=== PATIENT | male | born 1940 | race Hispanic/Latino ===

== ENCOUNTER 2016-12-11 17:31 | Observation (INO) | payer MEDICARE, BC ==
[2016-12-11] MEDS ORDERED: Sodium Chloride 0.9% 1,000 ML IV STA (18:14)
[2016-12-11] MEDS ORDERED: Morphine 4 mg/ml ISec IVP STA (18:14)
--- NOTE | 2016-12-11 18:24 | ED PDOC ---
Arrival/HPI - General Chief Complaint: Abdominal Pain Time Seen by Provider: 12/11/16 18:04 Historian: Patient, Spouse - History of Present Illness Narrative History of Present Illness (Text): 12/11/16 18:05 Rojelio Canada is a 76 year old male, whose past medical history includes GERD , presents to the emergency department complaining of right side abdominal pain since this morning at around 07:30. Patient's reports that patient woke up with the pain, she then decided to give him breakfast but it continued to hurt. Patient notes being compliant with his medication, but today it gave him no relief and the pain is worse when lying down. Patient denies any chest pain, shortness of breath, dysuria, vomiting, fever, or other complaints. PMD: Dr. Veronica Kitchen Time/Duration: Other (early this morning at 07:30) Symptom Onset: Sudden Symptom Course: Unchanged Severity Level: Severe Activities at Onset: Light Modifying Factors (Text): pain is worse when lying down Context: Home Past Medical History - Provider Review Nursing Documentation Reviewed: Yes - Infectious Disease Hx of Infectious Diseases: None - Cardiac Hx Pacemaker: No - Neurological Hx Paralysis: No - Hematological/Oncological Hx Blood Transfusions: No Hx Blood Transfusion Reaction: No - Musculoskeletal/Rheumatological Hx Musculoskeletal Disorders: No - Psychiatric Hx Anxiety: Yes Hx Emotional Abuse: No Hx Physical Abuse: No Hx Substance Use: No - Anesthesia Hx Anesthesia Reactions: No Hx Malignant Hyperthermia: No - Suicidal Assessment Feels Threatened In Home Enviroment: No Family/Social History - Physician Review Nursing Documentation Reviewed: Yes Family/Social History: Unknown Family HX Smoking Status: Never Smoked Hx Alcohol Use: Yes (OCCASSIONAL) Frequency of alcohol use: Socially Hx Substance Use: No Allergies/Home Meds Allergies/Adverse Reactions: Allergies No Known Allergies Allergy (Verified 12/11/16 18:00) Home Medications: Home Meds Medication Instructions Recorded Confirmed Omeprazole 20 mg PO DAILY 09/16/13 12/11/16 Sertraline [Zoloft] 100 mg PO DAILY 09/16/13 12/11/16 Review of Systems - Review of Systems Constitutional: absent: Fevers Respiratory: absent: SOB Cardiovascular: absent: Chest Pain Gastrointestinal: Abdominal Pain (right upper quadrant). absent: Diarrhea, Vomiting Genitourinary Male: absent: Dysuria, Frequency Musculoskeletal: absent: Back Pain Neurological: absent: Headache Physical Exam Vital Signs Temp Pulse Resp BP Pulse Ox 12/11/16 21:08 68 20 136/72 95 12/11/16 17:56 98.9 F 64 20 159/77 H 97 Temperature: Afebrile Blood Pressure: Hypertensive Pulse: Regular Respiratory Rate: Normal Appearance: Positive for: Well-Appearing, Non-Toxic, Uncomfortable Pain Distress: Moderate Mental Status: Positive for: Alert and Oriented X 3 - Systems Exam Head: Present: Atraumatic, Normocephalic Pupils: Present: PERRL Extroacular Muscles: Present: EOMI Conjunctiva: Present: Normal Mouth: Present: Moist Mucous Membranes Neck: Present: Normal Range of Motion Respiratory/Chest: Present: Clear to Auscultation, Good Air Exchange. No: Respiratory Distress, Accessory Muscle Use Cardiovascular: Present: Regular Rate and Rhythm, Normal S1, S2. No: Murmurs Abdomen: Present: Tenderness (RUQ tenderness), Normal Bowel Sounds, Guarding, Other ((+) Lugo's sign). No: Distention, Peritoneal Signs Back: Present: Normal Inspection Upper Extremity: Present: Normal Inspection. No: Cyanosis, Edema Lower Extremity: Present: Normal Inspection. No: Edema Neurological: Present: GCS=15, CN II-XII Intact, Speech Normal Skin: Present: Warm, Dry, Normal Color. No: Rashes Psychiatric: Present: Alert, Oriented x 3, Normal Insight, Normal Concentration Medical Decision Making ED Course and Treatment: 12/11/16 18:05 Impression: 76 year old male with RUQ abdominal pain and tenderness, positive for Lugo's sign. Differential Diagnosis included but are not limited to: r/o cholecystitis vs gastritis vs pancreatitis Plan: -- EKG -- Ultrasound -- Labs -- Urinalysis -- Morphine, Pepcid, Zofran, and Sodium Chloride -- Reassess and disposition Progress Notes: EKG: Ordered, reviewed, and independently interpreted the EKG. Rate : 58 BPM Rhythm : sinus bradycardia Interpretation : 12/11/16 19:00 US Abdomen: Creator : BRAATA, SHANNON FINDINGS: Artifacts: The study is limited by artifact from bowel gas. Liver: The liver is increased in echogenicity, most commonly due to fatty infiltration, but other chronic liver diseases may have a similar appearance. The liver measures 13.4 x 10.9 cm. Gallbladder: No discrete gallstones are visualized. Mild iso-to hypoechoic sludge is visualized within the gallbladder. There is no significant gallbladder wall thickening or pericholecystic fluid. Common bile duct: The common bile duct measures 0.3 cm in diameter. No dilation. Pancreas: The pancreas is not visualized. Kidneys: The right kidney measures 9.9 x 5.4 x 5.6 cm. The left kidney measures 10.0 x 5.1 x 6.1 cm. No shadowing stones. No hydronephrosis. Spleen: The spleen measures 11.0 x 3.7 cm and is normal in echogenicity. Aorta: The aorta is not visualized. Inferior vena cava: The IVC is not visualized. IMPRESSION: 1. The liver is increased in echogenicity, most commonly due to fatty infiltration, but other chronic liver diseases may have a similar appearance. 2. No discrete gallstones are visualized. Mild iso-to hypoechoic sludge is visualized within the gallbladder. 3. Additional findings described above. This study is technically limited. 12/11/16 21:00 CT Abdomen and Pelvis With Intravenous Contrast: Creator : SHANNON REED FINDINGS: Lower thorax: Atelectatic changes and increased interstitial markings are identified at the bilateral lung bases. There is coronary artery calcification. ABDOMEN: Liver: No mass. Gallbladder and bile ducts: No calcified stones. No ductal dilation. Pancreas: Normal contour, without acute peripancreatic stranding. Spleen: No splenomegaly. Adrenals: No mass. Kidneys and ureters: Nonspecific perinephric stranding is seen bilaterally. There is no hydronephrosis bilaterally. Stomach and bowel: Colonic diverticula are identified, without acute inflammatory stranding of the adjacent mesentery. There is mild thickening of the descending and transverse colon, consistent with incomplete distention or mild colitis. There is mild distention of a small bowel loop within the left upper abdomen with air-fluid levels. Partial obstruction cannot be excluded. Appendix: There is mild gaseous distention of the appendix measuring 9 mm in diameter. There is no acute periappendiceal stranding. PELVIS: Bladder: A right inguinal hernia is identified containing a small portion of the bladder. Reproductive: The prostate is enlarged. ABDOMEN and PELVIS: Intraperitoneal space: No free air. Bones/joints: Hypertrophic degenerative changes are noted within the spine. There is mild convexity of the lumbar spine to the right. Soft tissues: Bilateral gynecomastia. Vasculature: There is atherosclerotic calcification of the abdominal aorta. No abdominal aortic aneurysm. Lymph nodes: No significant retroperitoneal or intrapelvic lymphadenopathy. IMPRESSION: 1. A right inguinal hernia is identified containing a small portion of the bladder. 2. The prostate is enlarged. 3. There is mild gaseous distention of the appendix measuring 9 mm in diameter. There is no acute periappendiceal stranding. Clinical correlation is recommended. 4. There is mild distention of a small bowel loop within the left upper abdomen with air-fluid levels. Partial obstruction cannot be excluded. 5. There is mild thickening of the descending and transverse colon, consistent with incomplete distention or mild colitis. 6. Diverticulosis. 7. Additional CT findings described above. 12/11/16 21:45 Patient's abdomen is soft and tender in RUQ and epigastric with mild guarding. No rebound. Abdominal exam with significant improvement from arrival. Patient feels much better. Discussed case with Exercise Physiologist Certified Ruy who will come and evaluate patient. 12/11/16 22:01 Dr. Redmond evaluated patient and agrees there is no acute abdomen at this time or need for emergent surgery. He will discuss case with Dr. Mackay. Dr. Mackay requested by patient's and patient. Case discussed with Dr. Puente who will place on his service. Consult was also placed with Dr. Winter who patient has seen many times for GI. - Lab Interpretations Lab Results: 12/11/16 18:35 12/11/16 18:35 Lab Results 12/11/16 20:33: Blood Type Confirm O POSITIVE 12/11/16 18:35: Blood Type O POSITIVE, Antibody Screen Negative, BBK History Checked No verified bt 12/11/16 18:35: Sodium 142, Potassium 4.6, Chloride 102, Carbon Dioxide 28, Anion Gap 17, BUN 17, Creatinine 1.0, Est GFR ( Amer) > 60, Est GFR (Non- Af Amer) > 60, Random Glucose 108, Calcium 9.5, Total Bilirubin 1.8 H, AST 27, ALT 51, Alkaline Phosphatase 78, Lactate Dehydrogenase 431, Total Creatine Kinase 167, Troponin I < 0.01, Total Protein 8.4 H, Albumin 4.7, Globulin 3.7, Albumin/Globulin Ratio 1.3, Lipase 44 12/11/16 18:35: Urine Color Yellow, Urine Appearance Clear, Urine pH 6.0, Ur Specific [place] 1.020, Urine Protein Negative, Urine Glucose (UA) Negative, Urine Ketones Negative, Urine Blood Negative, Urine Nitrate Negative, Urine Bilirubin Negative, Urine Urobilinogen 0.2, Ur Leukocyte Esterase Negative 12/11/16 18:35: PT 11.5, INR 1.06, APTT 28.7 12/11/16 18:35: WBC 7.4 D, RBC 4.60, Hgb 14.2, Hct 41.9 L, MCV 91.1, MCH 30.9, MCHC 33.9, RDW 13.8, Plt Count 140, MPV 11.6 H, Gran % 66.4, Lymph % (Auto) 24.9 , [place] % (Auto) 7.7 H, Eos % (Auto) 0.9 L, Baso % (Auto) 0.1, Gran # 4.93, Lymph # 1.9, [place] # 0.6, Eos # 0.1, Baso # 0.01 I have reviewed the lab results: Yes - RAD Interpretation Radiology Orders: 12/11/16 18:14 ABDOMEN COMPLETE [US] Stat 12/11/16 20:17 ABD & PELVIS IV CONTRAST ONLY [CT] Stat - EKG Interpretation Interpreted by ED Physician: Yes Type: 12 lead EKG - Medication Orders Current Medication Orders: Sodium Chloride (Sodium Chloride 0.9%) 1,000 mls @ 100 mls/hr IV .Q10H STA Stop: 12/12/16 04:13 Last Admin: 12/11/16 18:49 Dose: 100 mls/hr Discontinued Medications Famotidine (Pepcid) 20 mg IVP STAT STA Stop: 12/11/16 18:15 Last Admin: 12/11/16 18:49 Dose: 20 mg Iohexol (Omnipaque 350 100 Ml) Confirm Administered Dose 350 mg .ROUTE .STK-MED ONE Stop: 12/11/16 20:22 Morphine Sulfate (Morphine) 4 mg IVP STAT STA Stop: 12/11/16 18:15 Last Admin: 12/11/16 18:48 Dose: 4 mg Re-Assess: YOEL Pain Assessment Document 12/11/16 19:48 OCS (Rec: 12/11/16 20:55 OCS [facility] [id number] Pain Reassessment Is this a pain reassessment? Yes Sleep Is patient sleeping during reassessment? Yes Ondansetron HCl (Zofran Inj) 4 mg IVP STAT STA Stop: 12/11/16 18:15 Last Admin: 12/11/16 18:49 Dose: 4 mg - Scribe Statement The provider has reviewed the documentation as recorded by the Scribe 12/11/2016 Jocelyne Bunny Provider Scribe Attestation: All medical record entries made by the Scribe were at my direction and personally dictated by me. I have reviewed the chart and agree that the record accurately reflects my personal performance of the history, physical exam, medical decision making, and the department course for this patient. I have also personally directed, reviewed, and agree with the discharge instructions and disposition. Disposition/Present on Arrival - Present on Arrival Any Indicators Present on Arrival: No History of DVT/PE: No History of Uncontrolled Diabetes: No Urinary Catheter: No History of Decub. Ulcer: No History Surgical Site Infection Following: None - Disposition Have Diagnosis and Disposition been Completed?: Yes Diagnosis: Abdominal pain Disposition Time: 21:46 Patient Plan: Observation Patient Problems: Current Active Problems Problem Status Onset Abdominal pain Acute Condition: FAIR Referrals: Veronica Kitchen MD [Primary Care Provider] - Follow up with primary Forms: zoidu (Telugu)
[2016-12-11 18:54] LABS: BASO # 0.01 K/mm3 (0.0-2.0); BASO % 0.1 % (0.0-3.0); EOS # 0.1 (0.0-0.7); EOS % 0.9 % (1.5-5.0); GRAN # 4.93 (1.4-6.5); GRAN % 66.4 % (50.0-68.0); HEMATOCRIT 41.9 % (42.0-52.0); LYMPH # 1.9 (1.2-3.4); LYMPH % 24.9 % (22.0-35.0); MEAN CELL VOLUME 91.1 fl (80.0-105.0); MEAN CORPUSCULAR HEMOGLOBIN 30.9 pg (25.0-35.0); MEAN CORPUSCULAR HGB CONC 33.9 g/dl (31.0-37.0); MEAN PLATELET VOLUME 11.6 fl (7.0-11.0); MONO # 0.6 (0.1-0.6); MONO % 7.7 % (1.0-6.0); RED CELL DISTRIBUTION WIDTH 13.8 % (11.5-14.5); WHITE BLOOD COUNT 7.4 10^3/ul (4.5-11.0)
[2016-12-11 18:55] LABS: URINE BILIRUBIN NEGATIVE (NEGATIVE); URINE BLOOD NEGATIVE (NEGATIVE); URINE GLUCOSE (UA) NEGATIVE (NEGATIVE); URINE KETONE NEGATIVE (NEGATIVE); URINE LEUKOCYTE ESTERASE NEGATIVE Leu/uL (NEGATIVE); URINE PROTEIN NEGATIVE mg/dL (<30 mg/dL); URINE UROBILINOGEN 0.2 E.U./dL (<1 E.U./dL)
[2016-12-11 18:56] LABS: URINE APPEARANCE CLEAR (CLEAR); URINE COLOR YELLOW (YELLOW)
[2016-12-11 18:58] LABS: ALB/GLOB RATIO 1.3 (1.1-1.8); ALKALINE PHOSPHATASE 78 U/L (38-126); ALT/SGPT 51 U/L (7-56); AST/SGOT 27 U/L (17-59); BILIRUBIN,TOTAL 1.8 mg/dL (0.2-1.3); BLOOD UREA NITROGEN 17 mg/dL (7-21); CALCIUM 9.5 mg/dL (8.4-10.5); CARBON DIOXIDE 28 mmol/L (21-33); CHLORIDE 102 mmol/L (98-107); GFR AFRICAN-AMERICAN > 60; GLUCOSE,RANDOM 108 mg/dL (70-110); LIPASE 44 U/L (23-300); POTASSIUM 4.6 mmol/L (3.6-5.0); SODIUM 142 mmol/L (132-148); TOTAL PROTEIN 8.4 g/dL (5.8-8.3)
[2016-12-11 19:00] LABS: INR 1.06 (0.93-1.08); PARTIAL THROMBOPLASTIN TIME 28.7 Seconds (23.7-30.8)
[2016-12-11 19:12] LABS: TROPONIN I < 0.01 ng/mL
[2016-12-11] MEDS ORDERED: Iohexol 350 MG/100 ML VIAL ONE (20:21)
--- NOTE | 2016-12-11 20:35 | US ---
EXAM: US Abdomen Complete EXAM DATE/TIME: 12/11/2016 6:14 PM CLINICAL HISTORY: The patient age is 76 years old and is male; Pain; Abdominal pain; Additional info: Ruq pain R/O cholecystitis vs biliary colic Facility exam id and description: Us abd abdomen complete TECHNIQUE: Real-time ultrasound of the abdomen (complete) with image documentation. COMPARISON: No relevant prior studies available. FINDINGS: Artifacts: The study is limited by artifact from bowel gas. Liver: The liver is increased in echogenicity, most commonly due to fatty infiltration, but other chronic liver diseases may have a similar appearance. The liver measures 13.4 x 10.9 cm. Gallbladder: No discrete gallstones are visualized. Mild iso-to hypoechoic sludge is visualized within the gallbladder. There is no significant gallbladder wall thickening or pericholecystic fluid. Common bile duct: The common bile duct measures 0.3 cm in diameter. No dilation. Pancreas: The pancreas is not visualized. Kidneys: The right kidney measures 9.9 x 5.4 x 5.6 cm. The left kidney measures 10.0 x 5.1 x 6.1 cm. No shadowing stones. No hydronephrosis. Spleen: The spleen measures 11.0 x 3.7 cm and is normal in echogenicity. Aorta: The aorta is not visualized. Inferior vena cava: The IVC is not visualized. IMPRESSION: 1. The liver is increased in echogenicity, most commonly due to fatty infiltration, but other chronic liver diseases may have a similar appearance. 2. No discrete gallstones are visualized. Mild iso-to hypoechoic sludge is visualized within the gallbladder. 3. Additional findings described above. This study is technically limited.
--- NOTE | 2016-12-11 21:10 | CT ---
EXAM: CT Abdomen and Pelvis With Intravenous Contrast EXAM DATE/TIME: 12/11/2016 8:17 PM CLINICAL HISTORY: The patient age is 76 years old and is male; Pain; Abdominal pain; Localized; Right upper quadrant (ruq); Additional info: Ruq abd pain Facility exam id and description: Ct abdpelciv abd pelvis iv contrast only TECHNIQUE: Axial computed tomography images of the abdomen and pelvis with intravenous contrast. All CT scans at this facility use one or more dose reduction techniques, viz.: automated exposure control; ma/kV adjustment per patient size (including targeted exams where dose is matched to indication; i.e. head); or iterative reconstruction technique. Coronal and sagittal reformatted images were created and reviewed. CONTRAST: 97 mL of OMNI 350 administered intravenously. COMPARISON: US - ABDOMEN COMPLETE 12/11/2016 7:29:25 PM FINDINGS: Lower thorax: Atelectatic changes and increased interstitial markings are identified at the bilateral lung bases. There is coronary artery calcification. ABDOMEN: Liver: No mass. Gallbladder and bile ducts: No calcified stones. No ductal dilation. Pancreas: Normal contour, without acute peripancreatic stranding. Spleen: No splenomegaly. Adrenals: No mass. Kidneys and ureters: Nonspecific perinephric stranding is seen bilaterally. There is no hydronephrosis bilaterally. Stomach and bowel: Colonic diverticula are identified, without acute inflammatory stranding of the adjacent mesentery. There is mild thickening of the descending and transverse colon, consistent with incomplete distention or mild colitis. There is mild distention of a small bowel loop within the left upper abdomen with air-fluid levels. Partial obstruction cannot be excluded. Appendix: There is mild gaseous distention of the appendix measuring 9 mm in diameter. There is no acute periappendiceal stranding. PELVIS: Bladder: A right inguinal hernia is identified containing a small portion of the bladder. Reproductive: The prostate is enlarged. ABDOMEN and PELVIS: Intraperitoneal space: No free air. Bones/joints: Hypertrophic degenerative changes are noted within the spine. There is mild convexity of the lumbar spine to the right. Soft tissues: Bilateral gynecomastia. Vasculature: There is atherosclerotic calcification of the abdominal aorta. No abdominal aortic aneurysm. Lymph nodes: No significant retroperitoneal or intrapelvic lymphadenopathy. IMPRESSION: 1. A right inguinal hernia is identified containing a small portion of the bladder. 2. The prostate is enlarged. 3. There is mild gaseous distention of the appendix measuring 9 mm in diameter. There is no acute periappendiceal stranding. Clinical correlation is recommended. 4. There is mild distention of a small bowel loop within the left upper abdomen with air-fluid levels. Partial obstruction cannot be excluded. 5. There is mild thickening of the descending and transverse colon, consistent with incomplete distention or mild colitis. 6. Diverticulosis. 7. Additional CT findings described above.
--- NOTE | 2016-12-11 22:31 | CP.PCM.CON ---
History of Present Illness - History of Present Illness History of Present Illness: Gen Sx: Dr Mackay Pt is a 76M, otherwise healthy, with a PMH for only gastritis (GI = Dr Winter) . Pt reports he had RUQ pain which developed early this morning shortly after breakfast. Pt took his daily omeprazole but this did not alleviate the pain. Throughout the day the pain would come and go but each occurrence increased in severity, prompting his visit to the ED. At the time of ED presentation pt pain was 10/10 but it has since resolved. He denies any radiation to the back, chest, or throughout the rest of the abdomen. He denies any N/V, F/C, SOB or chest pain. He has had episodes like this in the past but never this intense. CT performed in ED: V-rad read as distal colitis, however there is definitely a significant degree of gastric wall thickening consistent with his presentation and medical history. Last EGD was 4 years ago. PMH: as above PSH: none NKDA Review of Systems - Review of Systems All systems: reviewed and no additional remarkable complaints except (as per hpi ) Past Patient History - Infectious Disease Hx of Infectious Diseases: None - Past Social History Smoking Status: Never Smoked - CARDIAC Hx Pacemaker: No - NEUROLOGICAL Hx Paralysis: No - HEMATOLOGICAL/ONCOLOGICAL Hx Blood Transfusions: No Hx Blood Transfusion Reaction: No - MUSCULOSKELETAL/RHEUMATOLOGICAL Hx Musculoskeletal Disorders: No - PSYCHIATRIC Hx Anxiety: Yes Hx Emotional Abuse: No Hx Physical Abuse: No Hx Substance Use: No - SURGICAL HISTORY Hx Surgeries: Yes - ANESTHESIA Hx Anesthesia Reactions: No Hx Malignant Hyperthermia: No Meds Allergies/Adverse Reactions: Allergies Allergy/AdvReac Type Severity Reaction Status Date / Time No Known Allergies Allergy Verified 12/11/16 18:00 - Medications Medications: Current Medications Sodium Chloride (Sodium Chloride 0.9%) 1,000 mls @ 100 mls/hr IV .Q10H STA Stop: 12/12/16 04:13 Last Admin: 12/11/16 18:49 Dose: 100 mls/hr Physical Exam - Constitutional Appears: Non-toxic, No Acute Distress - Head Exam Head Exam: NORMAL INSPECTION - Eye Exam Eye Exam: Normal appearance - ENT Exam ENT Exam: Mucous Membranes Moist - Respiratory Exam Respiratory Exam: absent: Accessory Muscle Use, Respiratory Distress - Cardiovascular Exam Cardiovascular Exam: REGULAR RHYTHM. absent: Tachycardia - GI/Abdominal Exam GI & Abdominal Exam: Normal Bowel Sounds, Soft. absent: Distended, Firm, Guarding, Hernia, Mass, Rebound, Rigid, Tenderness - Extremities Exam Extremities exam: Negative for: calf tenderness, pedal edema - Back Exam Back exam: FULL ROM. absent: CVA tenderness (L), CVA tenderness (R), muscle spasm, tenderness - Neurological Exam Neurological exam: Alert, Oriented x3 - Psychiatric Exam Psychiatric exam: Normal Affect, Normal Mood - Skin Skin Exam: Normal Color, Warm Results - Vital Signs Recent Vital Signs: Last Vital Signs Temp 98.9 F 12/11/16 17:56 Pulse 68 12/11/16 21:08 Resp 20 12/11/16 21:08 BP 136/72 12/11/16 21:08 Pulse Ox 95 12/11/16 21:08 - Labs Result Diagrams: 12/11/16 18:35 12/11/16 18:35 Assessment & Plan - Assessment and Plan (Free Text) Assessment: 76M presents with acute abdominal pain: ddx gastritis vs gastric ulcer vs ACS Plan: acute coronary syndrome ruled out in ED recommend admission for further evaluation NPO, IV Fluids, pain control PRN, PPI Will place GI consult with Dr Winter, pt may require repeat endoscopy to evaluate for disease progression or ulcers will d/w Dr Thompson Redmond, PGY3
[2016-12-11] MEDS ORDERED: Morphine 4 mg/ml ISec IVP PRN (22:35)
[2016-12-11 23:16] VITALS: RESP 18
[2016-12-11 23:47] VITALS: BMI 29.7
[2016-12-12 06:47] LABS: BASO # 0.01 K/mm3 (0.0-2.0); BASO % 0.2 % (0.0-3.0); EOS # 0.1 (0.0-0.7); EOS % 1.5 % (1.5-5.0); GRAN # 3.3 (1.4-6.5); GRAN % 61.3 % (50.0-68.0); HEMATOCRIT 37.7 % (42.0-52.0); LYMPH # 1.5 (1.2-3.4); MEAN CELL VOLUME 91.1 fl (80.0-105.0); MEAN CORPUSCULAR HEMOGLOBIN 30.4 pg (25.0-35.0); MEAN CORPUSCULAR HGB CONC 33.4 g/dl (31.0-37.0); MONO # 0.5 (0.1-0.6); WHITE BLOOD COUNT 5.4 10^3/ul (4.5-11.0)
[2016-12-12 07:03] LABS: ALB/GLOB RATIO 1.2 (1.1-1.8); ALKALINE PHOSPHATASE 61 U/L (38-126); ALT/SGPT 38 U/L (7-56); AST/SGOT 20 U/L (17-59); BILIRUBIN,TOTAL 2.1 mg/dL (0.2-1.3); BLOOD UREA NITROGEN 15 mg/dL (7-21); CALCIUM 8.5 mg/dL (8.4-10.5); CARBON DIOXIDE 26 mmol/L (21-33); CHLORIDE 107 mmol/L (98-107); GFR AFRICAN-AMERICAN > 60; GLUCOSE,RANDOM 103 mg/dL (70-110); POTASSIUM 4.3 mmol/L (3.6-5.0); SODIUM 142 mmol/L (132-148); TOTAL PROTEIN 6.7 g/dL (5.8-8.3)
--- NOTE | 2016-12-12 07:56 | CP.PCM.PN ---
Subjective - Date & Time of Evaluation Date of Evaluation: 12/12/16 Time of Evaluation: 07:48 - Subjective Subjective: General Surgery: Dr. Mackay 76 yo M PMH of gastritis evaluated for gastritis vs. possible SBO. Pt is followed by GI (Dr. Winter) as an outpatient. Pt reports improvement in RUQ abdominal pain this morning since the start of IV omeprazole yesterday evening. Denies f/c n/v, SOB, chest pain. Objective - Vital Signs/Intake and Output Vital Signs (last 24 hours): Temp Pulse Resp BP Pulse Ox 97.8 F 55 L 18 135/71 97 12/11/16 23:19 12/11/16 23:19 12/11/16 23:19 12/11/16 23:19 12/11/16 23:15 Intake and Output: 12/12/16 12/12/16 06:59 18:59 Intake Total 0 Balance 0 - Medications Medications: Current Medications Sodium Chloride (Sodium Chloride 0.9%) 1,000 mls @ 100 mls/hr IV .Q10H [facility] Last Admin: 12/12/16 00:00 Dose: Not Given Morphine Sulfate (Morphine) 4 mg IVP Q4H PRN PRN Reason: Pain, moderate (4-7) Ondansetron HCl (Zofran Inj) 4 mg IVP Q6 PRN PRN Reason: Nausea/Vomiting Pantoprazole Sodium (Protonix Inj) 40 mg IVP Q12 LEX - Labs Labs: 12/12/16 06:00 12/12/16 06:00 PT 11.5 Seconds (9.9-11.8) 12/11/16 18:35 INR 1.06 (0.93-1.08) 12/11/16 18:35 APTT 28.7 Seconds (23.7-30.8) 12/11/16 18:35 - Constitutional Appears: Non-toxic, No Acute Distress - Head Exam Head Exam: ATRAUMATIC, NORMOCEPHALIC - Eye Exam Eye Exam: EOMI. absent: Conjunctival injection - ENT Exam ENT Exam: Mucous Membranes Moist - Neck Exam Neck Exam: Full ROM - Respiratory Exam Respiratory Exam: NORMAL BREATHING PATTERN. absent: Accessory Muscle Use - Cardiovascular Exam Cardiovascular Exam: absent: Bradycardia, Tachycardia - GI/Abdominal Exam GI & Abdominal Exam: Soft. absent: Guarding, Rigid, Tenderness, Rebound - Extremities Exam Extremities Exam: Full ROM, Normal Inspection - Psychiatric Exam Psychiatric exam: Normal Affect, Normal Mood - Skin Skin Exam: Dry, Intact, Normal Color, Warm Assessment and Plan - Assessment and Plan (Free Text) Assessment: 76 yo M PMH gastritis evaluated for gastritis vs. possible SBO. Plan: c/w current medical management no surgical intervention at this time c/w IV omeprazole c/w current pain management f/u with GI for diet and recommendations Sofia Dash DO PGY1
[2016-12-12 08:00] VITALS: BP 126/71; PULSE 57; TEMP 98.5; O2SAT 96
[2016-12-12] MEDS: Sodium Chloride 0.9% 1,000 ML IV SCH ×2 (08:45)
--- NOTE | 2016-12-12 10:18 | CP.PCM.CON ---
History of Present Illness - History of Present Illness History of Present Illness: Seen and examined at the bedside this morning, chart was reviewed. Request for consultation is for abdominal pain,? Gastritis versus partials SBO. HPI: This is a 76-year-old male with a past medical history of gastritis, the patient denies any other pertinent history came to the emergency room yesterday with increasing complaints of right upper quadrant pain. Patient states that in the past he does get intermittent right upper quadrant pain, but yesterday morning after breakfast he experienced right upper quadrant pain that was increasing in intensity. He recalls having pancakes and seen for breakfast. Denies shortness of breath, chest pains, nausea, or vomiting. No complaints of any fever or chills. On admission he had a CT scan of abdomen and pelvis with only IV contrast and showed colonic diverticula with some thickening in the descending colon question of mild colitis or some 12? Partial SBO. The patient states that his last endoscopy was about 4 years ago no ulcers, he was given omeprazole to take, he does report that he does not take this medication daily and denies symptoms of acid reflux. No complaints of weight loss or loss of appetite. No reports of melena or bright red blood, his last bowel movement was yesterday, denies diarrhea or constipation. The patient's last colonoscopy was in 2013, he has history of colon polyp,on this last one, He was only found to have hemorrhoids and diverticulosis. Patient also had abdominal ultrasound, found to have fatty liver, no gallstones but sluggish, the CBD measured 0.3 cm Past medical history: As stated above gastritis, history of colon polyps, diveticulosis, gastric polyp,denies cardiac, pulmonary history Surgical history: Patient denies any abdominal or cardiac procedures/surgery Allergies: no known drug allergies Social history: Denies smoking, EtOH or substance abuse. Family history: Noncontributory Medications: Reviewed as per MAR ROS: Systems review with positive findings GI. Past Patient History - Infectious Disease Hx of Infectious Diseases: None - Past Social History Smoking Status: Never Smoked - CARDIAC Hx Pacemaker: No - NEUROLOGICAL Hx Paralysis: No - HEENT Hx Cataracts: Yes - HEMATOLOGICAL/ONCOLOGICAL Hx Blood Transfusions: No Hx Blood Transfusion Reaction: No - MUSCULOSKELETAL/RHEUMATOLOGICAL Hx Falls: No - GASTROINTESTINAL Hx Gastroesophageal Reflux: Yes - PSYCHIATRIC Hx Depression: Yes - SURGICAL HISTORY Hx Surgeries: Yes - ANESTHESIA Hx Anesthesia Reactions: No Hx Malignant Hyperthermia: No Meds Allergies/Adverse Reactions: Allergies Allergy/AdvReac Type Severity Reaction Status Date / Time No Known Allergies Allergy Verified 12/11/16 18:00 - Medications Medications: Current Medications Sodium Chloride (Sodium Chloride 0.9%) 1,000 mls @ 100 mls/hr IV .Q10H [facility] Last Admin: 12/12/16 08:45 Dose: 100 mls/hr Morphine Sulfate (Morphine) 4 mg IVP Q4H PRN PRN Reason: Pain, moderate (4-7) Ondansetron HCl (Zofran Inj) 4 mg IVP Q6 PRN PRN Reason: Nausea/Vomiting Pantoprazole Sodium (Protonix Inj) 40 mg IVP Q12 [facility] Last Admin: 12/12/16 09:16 Dose: 40 mg Physical Exam - Constitutional Appears: No Acute Distress - Head Exam Head Exam: NORMOCEPHALIC - Eye Exam Eye Exam: Normal appearance, PERRL. absent: Scleral icterus - ENT Exam ENT Exam: Mucous Membranes Moist - Neck Exam Neck exam: Positive for: Normal Inspection - Respiratory Exam Respiratory Exam: Clear to Auscultation Bilateral, NORMAL BREATHING PATTERN. absent: Respiratory Distress - Cardiovascular Exam Cardiovascular Exam: REGULAR RHYTHM, +S1, +S2 - GI/Abdominal Exam GI & Abdominal Exam: Normal Bowel Sounds, Soft, Tenderness (mild RUQ). absent: Distended, Guarding, Rebound - Extremities Exam Extremities exam: Positive for: pedal pulses present. Negative for: calf tenderness, pedal edema - Neurological Exam Neurological exam: Alert, CN II-XII Intact, Oriented x3 - Skin Skin Exam: Dry, Warm Results - Vital Signs Recent Vital Signs: Last Vital Signs Temp 98.5 F 12/12/16 07:59 Pulse 57 L 12/12/16 07:59 Resp 18 12/12/16 07:59 BP 126/71 12/12/16 07:59 Pulse Ox 96 12/12/16 07:59 - Labs Result Diagrams: 12/12/16 06:00 12/12/16 06:00 Labs: Laboratory Results - last 24 hr 12/12/16 12/12/16 06:00 06:00 WBC 5.4 D RBC 4.14 Hgb 12.6 L Hct 37.7 L MCV 91.1 MCH 30.4 MCHC 33.4 RDW 14.0 Plt Count 112 L MPV 11.0 Gran % 61.3 Lymph % (Auto) 27.0 [place] % (Auto) 10.0 H Eos % (Auto) 1.5 Baso % (Auto) 0.2 Gran # 3.30 Lymph # 1.5 Bowie # 0.5 Eos # 0.1 Baso # 0.01 Sodium 142 Potassium 4.3 Chloride 107 Carbon Dioxide 26 Anion Gap 13 BUN 15 Creatinine 0.9 Est GFR ( Amer) > 60 Est GFR (Non-Af Amer) > 60 Random Glucose 103 Calcium 8.5 Total Bilirubin 2.1 H AST 20 ALT 38 Alkaline Phosphatase 61 Total Protein 6.7 Albumin 3.6 Globulin 3.1 Albumin/Globulin Ratio 1.2 Assessment & Plan - Assessment and Plan (Free Text) Assessment: Assessment: 76-year-old male with past medical history of gastritis, colon polyps, diveticulosis came to the emergency room with complaints of right upper quadrant pain Gastritis versus partial small bowel obstruction, Status post abdominal ultrasound, no gallstones, looks like may have sludge, no CBD dilatation Hyperbilirubinemia Plan: Start patient on clear liquid diet and advance as tolerated Continue Protonix BID check reticulocyte count and direct bilirubin On IVF for hydration, consider DC if tolerate increased diet Being followed by surgery Patient's right upper quadrant abdominal pain has improved, patient is not regularly taking his omeprazole, he may benefit from an elective outpatient endoscopy, he can follow up in our outpatient office upon discharge. We will continue to follow closely. Thank you for this consult and for last participating in your patient's care, we 'll make further recommendations based upon patient's clinical course. Seen and discussed with Dr. Kc, who is covering Dr. Winter.
[2016-12-12 10:45] LABS: RETIC% 1.02 % (0.5-1.5)
--- NOTE | 2016-12-12 11:31 | CARD ---
APPROVED REPORT EKG Measurement Heart [id number] <Conclusion> Sinus bradycardia Inferior infarct, age undetermined Abnormal ECG
--- NOTE | 2016-12-12 11:39 | HP ---
HISTORY OF PRESENT ILLNESS: The patient is a 76-year-old male presented to the ED with abdominal pain right-sided for one day. No nausea. No vomiting. No fever. No cough with expectoration. CAT scan of the abdomen showed partial small bowel obstruction and thickening of colon consistent with colitis. He had EGD few years ago, which showed gastritis. He has a history of anxiety, no issues recently. PAST MEDICAL HISTORY: Anxiety, depression. PAST SURGICAL HISTORY: Unknown. PERSONAL HISTORY: Occasional alcohol used, never smoked. FAMILY HISTORY: Noncontributory. No positive history in mother and father. SOCIAL HISTORY: Lives at home. ALLERGIES: NO KNOWN DRUG ALLERGIES. HOME MEDICATIONS: Omeprazole 20 mg daily; Zoloft 100 mg daily. REVIEW OF SYSTEMS: As per HPI. Rest of the 12-point review of systems reviewed and negative. PHYSICAL EXAMINATION: GENERAL: Comfortable in bed, in no acute distress. VITAL SIGNS: Temperature 98.9, heart rate 64 per minute, respiratory rate 20 per minute, blood pressure 159/70, pulse ox is 97% on room air. HEENT: Head atraumatic, normocephalic. Oral mucosa moist. NECK: Supple. CHEST: Air entry present and equal bilaterally. No added sounds. CARDIOVASCULAR: S1 and S2 normal. No murmur. No gallop. ABDOMEN: Tenderness, right upper quadrant present; bowel sounds in decrease. No rigidity. No guarding. No distention. EXTREMITIES: No edema. DAY GUARD: Alert and oriented x3. Cranial nerves intact. SKIN: Warm and dry. No . No rash. No petechiae. SPINE: Nontender. DIAGNOSTIC IMAGING: CAT scan of the abdomen as per HPI. LABORATORY DATA: White count 7.4, hemoglobin 12.6, hematocrit 37.7, platelet count 112, potassium 4.3, bilirubin 2.1, AST 20, ALT 38, alkaline phosphatase 61. UA negative. ASSESSMENT AND PLAN: 1. Partial small bowel obstruction. 2. Colitis. 3. Mild anemia. 4. History of gastritis. 5. Anxiety and depression. PLAN: We will keep n.p.o., IV fluids normal saline 100 mL an hour; Protonix 40 mg IV q. 12; Zofran 4 mg IV q. 6 hours p.r.n., morphine sulfate 4 mg IV q. 4 hours p.r.n. for pain. Surgery consultation with Dr. Mackay requested. GI consultation with Dr. Winter requested. We will continue to monitor blood count. He has mild anemia. Thrombocytopenia, platelet count declined to 112, on admission it was 140. DVT prophylaxis with heparin subQ q. 12 hours, 5000. Mary Best MD [facility]EN
--- NOTE | 2016-12-12 21:24 | CON ---
DATE: 12/12/[address] Kc dictating an addendum to consultation performed by PEDRITO Davidson. I have personally seen and examined this patient. This is a 76-year-old male who comes to the hospital with increasing right upper quadrant abdominal pain with some nonspecific mural thickening of descending colon and minimal small-bowel dilatation on CAT scan. The patient denies any diarrhea, nausea, vomiting. There is some sludge in the gallbladder with no obvious stones or biliary dilatation. His liver enzymes are normal. The patient's abdominal pain had resolved this morning at the time of my visit and examination. Etiology of the abdominal pain is unclear. Recommendations are to advance the patient's diet as tolerated, and since his abdominal pain has resolved, he can be discharged to home with outpatient followup. Darrick Kc MD
--- NOTE | 2016-12-15 16:09 | CP.PCM.DIS ---
Provider - Provider Date of Admission: 12/11/16 21:58 Attending physician: Adonis Puente MD Primary care physician: Veronica Kitchen MD Time Spent in preparation of Discharge (in minutes): 50 Hospital Course - Lab Results Lab Results: Most Recent Lab Values WBC 5.4 10^3/ul (4.5-11.0) D 12/12/16 06:00 RBC 4.14 10^6/uL (3.5-6.1) 12/12/16 06:00 Hgb 12.6 g/dL (14.0-18.0) L 12/12/16 06:00 Hct 37.7 % (42.0-52.0) L 12/12/16 06:00 MCV 91.1 fl (80.0-105.0) 12/12/16 06:00 MCH 30.4 pg (25.0-35.0) 12/12/16 06:00 MCHC 33.4 g/dl (31.0-37.0) 12/12/16 06:00 RDW 14.0 % (11.5-14.5) 12/12/16 06:00 Plt Count 112 10^3/uL (120.0-450.0) L 12/12/16 06:00 MPV 11.0 fl (7.0-11.0) 12/12/16 06:00 Gran % 61.3 % (50.0-68.0) 12/12/16 06:00 Lymph % (Auto) 27.0 % (22.0-35.0) 12/12/16 06:00 [place] % (Auto) 10.0 % (1.0-6.0) H 12/12/16 06:00 Eos % (Auto) 1.5 % (1.5-5.0) 12/12/16 06:00 Baso % (Auto) 0.2 % (0.0-3.0) 12/12/16 06:00 Gran # 3.30 (1.4-6.5) 12/12/16 06:00 Lymph # 1.5 (1.2-3.4) 12/12/16 06:00 [place] # 0.5 (0.1-0.6) 12/12/16 06:00 Eos # 0.1 (0.0-0.7) 12/12/16 06:00 Baso # 0.01 K/mm3 (0.0-2.0) 12/12/16 06:00 Retic Count 1.02 % (0.5-1.5) 12/12/16 06:00 PT 11.5 Seconds (9.9-11.8) 12/11/16 18:35 INR 1.06 (0.93-1.08) 12/11/16 18:35 APTT 28.7 Seconds (23.7-30.8) 12/11/16 18:35 Sodium 142 mmol/L (132-148) 12/12/16 06:00 Potassium 4.3 mmol/L (3.6-5.0) 12/12/16 06:00 Chloride 107 mmol/L (98-107) 12/12/16 06:00 Carbon Dioxide 26 mmol/L (21-33) 12/12/16 06:00 Anion Gap 13 (10-20) 12/12/16 06:00 BUN 15 mg/dL (7-21) 12/12/16 06:00 Creatinine 0.9 mg/dL (0.5-1.4) 12/12/16 06:00 Est GFR ( Amer) > 60 12/12/16 06:00 Est GFR (Non-Af Amer) > 60 12/12/16 06:00 Random Glucose 103 mg/dL (70-110) 12/12/16 06:00 Calcium 8.5 mg/dL (8.4-10.5) 12/12/16 06:00 Total Bilirubin 2.1 mg/dL (0.2-1.3) H 12/12/16 06:00 Direct Bilirubin 0.4 mg/dL (0.0-0.4) 12/12/16 06:00 AST 20 U/L (17-59) 12/12/16 06:00 ALT 38 U/L (7-56) 12/12/16 06:00 Alkaline Phosphatase 61 U/L (38-126) 12/12/16 06:00 Lactate Dehydrogenase 431 U/L (333-699) 12/11/16 18:35 Total Creatine Kinase 167 U/L (35-230) 12/11/16 18:35 Troponin I < 0.01 ng/mL 12/11/16 18:35 Total Protein 6.7 g/dL (5.8-8.3) 12/12/16 06:00 Albumin 3.6 g/dL (3.0-4.8) 12/12/16 06:00 Globulin 3.1 gm/dL 12/12/16 06:00 Albumin/Globulin Ratio 1.2 (1.1-1.8) 12/12/16 06:00 Lipase 44 U/L (23-300) 12/11/16 18:35 Urine Color Yellow (YELLOW) 12/11/16 18:35 Urine Appearance Clear (CLEAR) 12/11/16 18:35 Urine pH 6.0 (4.7-8.0) 12/11/16 18:35 Ur Specific [place] 1.020 (1.005-1.035) 12/11/16 18:35 Urine Protein Negative mg/dL (<30 mg/dL) 12/11/16 18:35 Urine Glucose (UA) Negative mg/dL (NEGATIVE) 12/11/16 18:35 Urine Ketones Negative mg/dL (NEGATIVE) 12/11/16 18:35 Urine Blood Negative (NEGATIVE) 12/11/16 18:35 Urine Nitrate Negative (NEGATIVE) 12/11/16 18:35 Urine Bilirubin Negative (NEGATIVE) 12/11/16 18:35 Urine Urobilinogen 0.2 E.U./dL (<1 E.U./dL) 12/11/16 18:35 Ur Leukocyte Esterase Negative Vidya/uL (NEGATIVE) 12/11/16 18:35 Blood Type O POSITIVE 12/11/16 18:35 Blood Type Confirm O POSITIVE 12/11/16 20:33 Antibody Screen Negative 12/11/16 18:35 BBK History Checked No verified bt 12/11/16 18:35 - Hospital Course Hospital Course: ASSESSMENT AND PLAN: 1. Partial small bowel obstruction. 2. Colitis. 3. Mild anemia. 4. History of gastritis. 5. Anxiety and depression. Hospital Course : admitted with abdominal pain.GI consult requested. Abdominal pian resolved. Tolerating PO without pain. CT abdomen suugestive of partial small bowel obstruction. Clinically remains asymtomatic. Discharge Exam - Head Exam Head Exam: NORMOCEPHALIC - Eye Exam Eye Exam: Normal appearance Pupil Exam: NORMAL ACCOMODATION - ENT Exam ENT Exam: Normal Oropharynx. absent: Mucous Membranes Dry, Mucous Membranes Moist, Normal Exam, Normal External Ear Exam, TM's Normal Bilaterally - Neck Exam Neck exam: Normal Inspection - Respiratory Exam Respiratory Exam: Clear to PA & Lateral, NORMAL BREATHING PATTERN, UNREMARKABLE - Cardiovascular Exam Cardiovascular Exam: REGULAR RHYTHM, +S1, +S2 - GI/Abdominal Exam GI & Abdominal Exam: Normal Bowel Sounds, Soft, Unremarkable - Extremities Exam Extremities exam: normal inspection - Back Exam Back exam: NORMAL INSPECTION - Psychiatric Exam Psychiatric exam: Normal Affect, Normal Mood - Skin Skin Exam: Normal Color, Warm Discharge Plan - Follow Up Plan Condition: GOOD Disposition: HOME/ ROUTINE Patient education suggested?: Yes Instructions: Acute Abdominal Pain (DC), Acute Abdominal Pain (GEN) Additional Instructions: You have been cleared for discharge. Please follow up with your primary care physician for 1-2 weeks. Continue your home medications. Gradually increase your diet back to regular consistency. continue home meds. Referrals: Adonis Puente MD [Staff Provider] - Beth Winter MD [Medical Doctor] -
== END 2016-12-12 15:24 | disposition home or self-care (01) ==
LOC: ED 17:31 → ERH 21:58 → 3RNO 23:19
PROVIDERS: ADMIT Internal Medicine Nephrology; ATTEND Internal Medicine Nephrology
DX: K40.30 Unilateral inguinal hernia, with obstruction, without gangrene, not specified as recurrent (principal); K52.9 Noninfective gastroenteritis and colitis, unspecified; D64.9 Anemia, unspecified; K29.70 Gastritis, unspecified, without bleeding; F41.9 Anxiety disorder, unspecified; F32.89 Other specified depressive episodes; K21.9 Gastro-esophageal reflux disease without esophagitis; K57.90 Diverticulosis of intestine, part unspecified, without perforation or abscess without bleeding; K76.0 Fatty (change of) liver, not elsewhere classified; N40.0 Benign prostatic hyperplasia without lower urinary tract symptoms; Z79.899 Other long term (current) drug therapy; Z86.010 Personal history of colon polyps; K64.9 Unspecified hemorrhoids; R40.2412 Glasgow coma scale score 13-15, at arrival to emergency department; R00.1 Bradycardia, unspecified; E80.6 Other disorders of bilirubin metabolism
CPT/HCPCS: 36415; 74177; 76700; 80053; 81003; 82248; 82550; 83615; 83690; 84484; 85025; 85044; 85610; 85730; 86850; 86900; 93005; 96374; 96375; 99283; C9113; G0378; J2270; J2405; J7040; Q9967